=== PATIENT | male | born 1995 | race Caucasian/White ===

== ENCOUNTER 2016-12-19 19:21 | Emergency (ER) | payer MEDICAID ==
[2016-12-19 19:44] VITALS: RESP 18
--- NOTE | 2016-12-19 19:46 | EDPHY ---
H & P Time Seen by Provider: 12/19/16 19:36 HPI/ROS: CHIEF COMPLAINT: LSD ingestion HISTORY OF PRESENT ILLNESS: The patient presents to the emergency department after he reportedly ingested LSD. The patient is homeless and currently staying at a intermediate. The patient reports a history of seizure disorder and is supposed to be on Keppra but he has been off this medication for some time. The patient denies recent trauma, fall, fever or infectious symptoms. The patient denies IV drug use. The patient complains of feeling confused and having diffuse myalgias. REVIEW OF SYSTEMS: A comprehensive 10 point review of systems is otherwise negative aside from elements mentioned in the history of present illness. Source: Patient Exam Limitations: Intoxication - Medical/Surgical History Hx Asthma: Yes Hx Chronic Respiratory Disease: No Hx Diabetes: No Hx Cardiac Disease: No Hx Renal Disease: No Hx Cirrhosis: No Hx Alcoholism: No Hx HIV/AIDS: No Hx Splenectomy or Spleen Trauma: No Other PMH: HERB'S PALSY, CEREBRAL PALSY, SZ, POSS ASTHMA - Social History Smoking Status: Current every day smoker - Physical Exam Exam: General Appearance: Alert, no distress Eyes: Pupils equal and round no pallor or injection ENT, Mouth: Mucous membranes moist Respiratory: There are no retractions, lungs are clear to auscultation Cardiovascular: Regular rate and rhythm Gastrointestinal: Abdomen is soft and nontender, no masses, bowel sounds normal Neurological: A&O, normal motor function, normal sensory exam, normal cranial nerves Skin: Warm and dry, no rashes Musculoskeletal: Neck is supple nontender Extremities: symmetrical, full range of motion Psychiatric: Alert and oriented x3, mentation consistent with known LSD ingestion Constitutional: Initial Vital Signs Temperature (C) 36.6 C 12/19/16 19:38 Heart Rate 85 12/19/16 19:38 Respiratory Rate 18 12/19/16 19:38 Blood Pressure 125/74 H 12/19/16 19:38 O2 Sat (%) 95 12/19/16 19:38 O2 Delivery Mode Room Air Allergies/Adverse Reactions: No Known Allergies Allergy (Verified 01/24/16 02:54) Home Medications: Medication Instructions Recorded levETIRAcetam [Keppra] 500 mg PO BID #60 tab 01/22/16 levETIRAcetam [Keppra] 500 mg PO BID #14 tab 01/24/16 levETIRAcetam [Keppra] 500 mg PO BID #20 tab 01/26/16 Ondansetron Odt [Zofran Odt] 4 mg PO Q6-8PRN PRN #8 tab 02/04/16 levETIRAcetam [Keppra] 500 mg PO BID #30 tab 02/24/16 Medical Decision Making ED Course/Re-evaluation: The patient presents to the emergency department after an LSD ingestion. He was observed in the ED without evidence of significant vital sign abnormality. The patient's laboratory studies are within normal limits. The patient has no evidence of rhabdomyolysis. The patient was observed for 2 hours. He is now ambulatory without acute complaints. He denies suicidal ideation, homicidal ideation or acute pain. The patient will be discharged home with instructions to return to the emergency department for the development of any fever, worsening symptoms or other concerns. Differential Diagnosis: Differential diagnosis considered includes drug ingestion, rhabdomyolysis, dehydration, renal failure, metabolic derangement - Data Points Laboratory Results: Laboratory Results 12/19/16 19:55 12/19/16 19:55 12/19/16 12/19/16 19:55 19:55 WBC 13.77 10^3/uL H 10^3/uL (3.80-9.50) RBC 5.11 10^6/uL 10^6/uL (4.40-6.38) Hgb 15.2 g/dL g/dL (13.7-17.5) Hct 43.1 % % (40.0-51.0) MCV 84.3 fL fL (81.5-99.8) MCH 29.7 pg pg (27.9-34.1) MCHC 35.3 g/dL g/dL (32.4-36.7) RDW 12.4 % % (11.5-15.2) Plt Count 290 10^3/uL 10^3/uL (150-400) MPV 9.6 fL fL (8.7-11.7) Neut % (Auto) 78.5 % H % (39.3-74.2) Lymph % (Auto) 14.9 % L % (15.0-45.0) [place] % (Auto) 4.5 % % (4.5-13.0) Eos % (Auto) 1.2 % % (0.6-7.6) Baso % (Auto) 0.2 % L % (0.3-1.7) Nucleat RBC Rel Count 0.0 % % (0.0-0.2) Absolute Neuts (auto) 10.81 10^3/uL H 10^3/uL (1.70-6.50) Absolute Lymphs (auto) 2.05 10^3/uL 10^3/uL (1.00-3.00) Absolute Monos (auto) 0.62 10^3/uL 10^3/uL (0.30-0.80) Absolute Eos (auto) 0.17 10^3/uL 10^3/uL (0.03-0.40) Absolute Basos (auto) 0.03 10^3/uL 10^3/uL (0.02-0.10) Absolute Nucleated RBC 0.00 10^3/uL 10^3/uL (0-0.01) Immature Gran % 0.7 % % (0.0-1.1) Immature Gran # 0.09 10^3/uL 10^3/uL (0.00-0.10) Sodium 142 mEq/L mEq/L (134-144) Potassium 3.8 mEq/L mEq/L (3.5-5.2) Chloride 105 mEq/L mEq/L (97-110) Carbon Dioxide 25 mEq/l mEq/l (22-31) Anion Gap 12 mEq/L mEq/L (8-16) BUN 17 mg/dL mg/dL (7-23) Creatinine 0.8 mg/dL mg/dL (0.7-1.3) Estimated GFR > 60 Glucose 112 mg/dL H mg/dL (70-100) Calcium 9.8 mg/dL mg/dL (8.5-10.4) Creatine Kinase 150 IU/L IU/L (0-224) Ethyl Alcohol < 10 mg/dL mg/dL (0-10) Departure - Departure Disposition: Home, Routine, Self-Care Clinical Impression: Polysubstance abuse, Seizure disorder Condition: Good Instructions: Polysubstance Abuse (ED) Additional Instructions: 1. [facility] to [facility] care. 2. Please avoid the use of recreational drugs such as LSD as it puts you at risk for significant medical problems or possibly . 3. Return to the ED for any fever, severe pain, worsening symptoms or other concerns. Referrals: [facility],. [Clinic] - As per Instructions
[2016-12-19 20:06] LABS: % IMMATURE GRANULYOCYTES 0.7 % (0.0-1.1); ABSOLUTE IMMATURE GRANULOCYTES 0.09 10^3/uL (0.00-0.10); ADD DIFF? NO; ADD MORPH? NO; ADD SCAN? NO; ATYPICAL LYMPHOCYTE FLAG 10 (0-99); FRAGMENT RBC FLAG 0 (0-99); HEMATOCRIT 43.1 % (40.0-51.0); HEMOGLOBIN 15.2 g/dL (13.7-17.5); LEFT SHIFT FLG 0 (0-99); LIPEMIA HEMOLYSIS FLAG 90 (0-99); MEAN CELL HEMOGLOBIN 29.7 pg (27.9-34.1); MEAN CELL HEMOGLOBIN CONCENTR. 35.3 g/dL (32.4-36.7); MEAN CELL VOLUME 84.3 fL (81.5-99.8); MEAN PLATELET VOLUME 9.6 fL (8.7-11.7); PLATELET CLUMPS FLAG 10 (0-99); PLATELET COUNT 290 10^3/uL (150-400); RED BLOOD CELL COUNT 5.11 10^6/uL (4.40-6.38); RED CELL DISTRIBUTION WIDTH 12.4 % (11.5-15.2)
[2016-12-19 20:39] LABS: ANION GAP 12 mEq/L (8-16); CALCIUM 9.8 mg/dL (8.5-10.4); CARBON DIOXIDE 25 mEq/l (22-31); CHLORIDE 105 mEq/L (97-110); CREATININE 0.8 mg/dL (0.7-1.3); ETHANOL SERUM < 10 mg/dL (0-10); GLOMERULAR FILTRATION RATE > 60; GLUCOSE 112 mg/dL (70-100); POTASSIUM 3.8 mEq/L (3.5-5.2); SODIUM 142 mEq/L (134-144)
[2016-12-19 20:41] VITALS: O2SAT 94
[2016-12-19 21:37] VITALS: BP 108/86; PULSE 90; TEMP 98.2
== END 2016-12-19 21:38 | disposition home or self-care (01) ==
LOC: EDUNIT#
DX: G40.909 Epilepsy, unspecified, not intractable, without status epilepticus (principal); F19.10 Other psychoactive substance abuse, uncomplicated; J45.909 Unspecified asthma, uncomplicated; F17.200 Nicotine dependence, unspecified, uncomplicated
CPT/HCPCS: G0480

== ENCOUNTER 2017-03-21 21:04 | Emergency (ER) | payer MEDICAID ==
--- NOTE | 2017-03-21 22:43 | EDPHY ---
H & P Smoking Status: Current every day smoker Time Seen by Provider: 03/21/17 22:03 HPI/ROS: CHIEF COMPLAINT: Right knee pain HISTORY OF PRESENT ILLNESS: 21-year-old male presents emergency department complaining of right knee pain. Patient reports he was skateboarding today when he fell onto his right knee. He denies any twisting injury. He denies numbness or tingling in his leg, no head strike, no neck pain, no other complaints. ( Nita Wylie) Physical Exam: GEN: Awake, alert, oriented, no acute distress RESP: nl resp effort MSK: Right knee with full active flexion and extension, diffuse tenderness to palpation throughout, unable to perform the exam due to patient not tolerating exam. 2+ pedal pulses SKIN: No break in skin (Nita Wylie) Constitutional: Initial Vital Signs Temperature (C) 36.8 C 03/21/17 21:17 Heart Rate 94 03/21/17 21:17 Respiratory Rate 18 03/21/17 21:17 Blood Pressure 117/74 03/21/17 21:17 O2 Sat (%) 94 03/21/17 21:17 O2 Delivery Mode Room Air Allergies/Adverse Reactions: No Known Allergies Allergy (Verified 01/24/16 02:54) Home Medications: Medication Instructions Recorded levETIRAcetam [Keppra] 500 mg PO BID #30 tab 02/24/16 MDM/Departure - [facility] Imaging: I viewed and interpreted images myself - [facility] ED Course/Re-evaluation: The patient was evaluated and managed by the Physician Cover Stitch Machine Operator/ Nurse Practitioner. My co-signature indicates that I have reviewed this chart and I agree with the findings and plan of care as documented. I am the secondary supervising physician. (aNz Horn) - Depart Disposition: Home, Routine, Self-Care Clinical Impression: Right knee injury Qualifiers: Encounter type: initial encounter Qualified Code(s): S89.91XA - Unspecified injury of right lower leg, initial encounter Condition: Good Instructions: Knee Pain (ED) Additional Instructions: Rest, ice, elevate, take 600 mg of ibuprofen every 8 hours with food for 3-5 days. Follow up with orthopedist for pain that is not improving in the next 3- 5 days. Return to the emergency department for worsening symptoms, new symptoms or concerns. Referrals: Kadeem Dietz MD [Medical Doctor] - As per Instructions (Orthopedist on-call )
[2017-03-21 22:56] VITALS: BP 122/82; PULSE 76; RESP 14; TEMP 97.7; O2SAT 91
== END 2017-03-21 22:55 | disposition home or self-care (01) ==
DX: S89.91XA Unspecified injury of right lower leg, initial encounter (principal); F17.200 Nicotine dependence, unspecified, uncomplicated; V00.131A Fall from skateboard, initial encounter; Y93.51 Activity, roller skating (inline) and skateboarding
CPT/HCPCS: L1830

== ENCOUNTER 2017-04-02 18:55 | Observation (INO) | payer MEDICAID ==
[2017-04-02] MEDS ORDERED: IOPAMIDOL (ISOVUE-300) 100 ML BTL ONE (19:06)
[2017-04-02 19:07] LABS: % IMMATURE GRANULYOCYTES 0.3 % (0.0-1.1); ABSOLUTE IMMATURE GRANULOCYTES 0.02 10^3/uL (0.00-0.10); ADD DIFF? NO; ADD MORPH? NO; ADD SCAN? NO; ATYPICAL LYMPHOCYTE FLAG 10 (0-99); FRAGMENT RBC FLAG 0 (0-99); HEMATOCRIT 40.7 % (40.0-51.0); LEFT SHIFT FLG 0 (0-99); LIPEMIA HEMOLYSIS FLAG 90 (0-99); MEAN CELL HEMOGLOBIN 29.9 pg (27.9-34.1); MEAN CELL HEMOGLOBIN CONCENTR. 34.4 g/dL (32.4-36.7); MEAN PLATELET VOLUME 9.6 fL (8.7-11.7); PLATELET CLUMPS FLAG 0 (0-99); PLATELET COUNT 256 10^3/uL (150-400); RED BLOOD CELL COUNT 4.68 10^6/uL (4.40-6.38); RED CELL DISTRIBUTION WIDTH 12.5 % (11.5-15.2)
[2017-04-02 19:20] LABS: ANION GAP 13 mEq/L (8-16); CARBON DIOXIDE 23 mEq/l (22-31); CHLORIDE 105 mEq/L (97-110); GLOMERULAR FILTRATION RATE > 60; GLUCOSE 108 mg/dL (70-100); POTASSIUM 4.1 mEq/L (3.5-5.2); SODIUM 141 mEq/L (134-144)
--- NOTE | 2017-04-02 19:38 | EDPHY ---
H & P Stated Complaint: longboard accident at unknown speed, no recall and no helmet Time Seen by Provider: 04/02/17 19:34 HPI/ROS: CHIEF COMPLAINT: Skateboarding accident HISTORY OF PRESENT ILLNESS: The patient presents to the ED by paramedics after a fall from his skateboard. The patient is amnestic to the specifics of the fall. He does remember riding at a high rate of speed. The patient is uncertain whether he struck his head. He has no head trauma and he has no complaints of headache. The patient does complain of back pain, mild anterior chest pain and bilateral knee pain. The patient reports a history of seizure disorder. The patient states he does take Keppra. The patient denies any focal numbness or weakness. He denies recent seizure or other acute complaints. REVIEW OF SYSTEMS: A comprehensive 10 point review of systems is otherwise negative aside from elements mentioned in the history of present illness. Source: Patient Exam Limitations: No limitations - Personal History Current Tetanus/Diphtheria Vaccine: Yes Tetanus Vaccine Date: 2015 - Medical/Surgical History Hx Asthma: Yes Hx Chronic Respiratory Disease: No Hx Diabetes: Yes Hx Cardiac Disease: No Hx Renal Disease: No Hx Cirrhosis: No Hx Alcoholism: No Hx HIV/AIDS: No Hx Splenectomy or Spleen Trauma: No Other PMH: HERB'S PALSY, CEREBRAL PALSY, SZ, POSS ASTHMA - Social History Smoking Status: Heavy smoker - Physical Exam Exam: General Appearance: Alert, no distress Head: Atraumatic, specifically no hematoma, abrasion or contusion Eyes: Pupils equal, round, reactive ENT, Mouth: No hemotympanum, no oral trauma Neck: Minimal tenderness to palpation in the bilateral paracervical muscles Respiratory: No chest wall tender, subcutaneous air, lungs clear bilaterally Cardiovascular: Regular rate and rhythm Abdomen: Abdomen is soft and nontender, pelvis stable Skin: Abrasions to bilateral knees, no laceration Back: No midline T/L/S pain Extremities: Tenderness to palpation bilateral knees Neurological: A&Ox3, normal motor function, normal sensory exam Constitutional: Initial Vital Signs Temperature (C) 36.7 C 04/02/17 19:11 Heart Rate 78 04/02/17 19:11 Respiratory Rate 22 H 04/02/17 19:11 Blood Pressure 112/66 04/02/17 19:11 O2 Sat (%) 96 04/02/17 19:11 O2 Delivery Mode Room Air Allergies/Adverse Reactions: No Known Allergies Allergy (Verified 01/24/16 02:54) Home Medications: Medication Instructions Recorded levETIRAcetam [Keppra] 500 mg PO BID #30 tab 02/24/16 Medical Decision Making - Diagnostics Imaging Results: Imaging Impressions Abdomen CT 04/02/17 18:59 Impression: Small tear of the innominate vein associated with a retromanubrial hematoma. There is a tiny amount of active contrast extravasation. 2. CT Scan of the Abdomen and Pelvis (With Contrast, multiphase, extended study ) , 19:18 Clinical Indications: Trauma. Skate boarding injury. Technique: 90 mL of Isovue 300 were given intravenously by machine power injection. Multidetector helical CT imaging was performed from the diaphragm to the symphysis pubis first during the arterial phase and then during a delayed phase. Dose reduction techniques were utilized. Findings: Abdomen: The liver and spleen are normal without evidence of laceration or subcapsular hematoma formation. The gallbladder and pancreas look normal. The kidneys do not show evidence for laceration, cortical contusion, or obstruction. There is no free air or free fluid. Pelvis: The urinary bladder is unremarkable. No free fluid in the pelvis. Bowel loops are normal.The patient is diffusely constipated. Bone window evaluation: No fracture is identified. The lumbar spine and sacrum are normally aligned. No pelvic or hip fracture is identified. Impression: No acute posttraumatic abnormality in the abdomen or pelvis. Results called and discussed with Tristan Abrams at 04/02/2017 19:58 Final results are concordant with the preliminary interpretation. General information for patients regarding this examination can be found at [email or web address]. If you have questions or comments about this report, please contact me at (hospital) or [phone] (cell). Cervical Spine CT 04/02/17 18:59 Impression: No acute posttraumatic abnormality identified. 2. CT Cervical Spine Without Contrast, 19:15 History: Trauma. Skateboarding injury today. Pain. Technique: Multislice helical CT through the cervical spine without contrast from the skull base to T1. Soft tissue and bone evaluation is performed. Sagittal and coronal reconstructions are obtained and reviewed. Dose reduction techniques were utilized. Findings: Cervical alignment is anatomic. No fracture or dislocation is identified. The relationship between skull base and C1 is normal. The C1-C2 articulation is normally aligned. There is congenital spina bifida occulta of the posterior arch of C1. The odontoid process is intact. Disk spaces maintain their normal height . Facet joints are normally aligned. The cervical thoracic junction is normally aligned. Soft tissue window evaluation does not show evidence of epidural or prevertebral hematoma. Impression: No acute posttraumatic abnormality identified. Results called and discussed with Tristan Abrams, at 04/02/2017 19:45 Final results are concordant with the initial interpretation. General information for patients regarding this examination can be found at [email or web address]. If you have questions or comments about this report, please contact me at (hospital) or [phone] (cell). Head CT 04/02/17 18:59 Impression: No acute posttraumatic abnormality identified. 2. CT Cervical Spine Without Contrast, 19:15 History: Trauma. Skateboarding injury today. Pain. Technique: Multislice helical CT through the cervical spine without contrast from the skull base to T1. Soft tissue and bone evaluation is performed. Sagittal and coronal reconstructions are obtained and reviewed. Dose reduction techniques were utilized. Findings: Cervical alignment is anatomic. No fracture or dislocation is identified. The relationship between skull base and C1 is normal. The C1-C2 articulation is normally aligned. There is congenital spina bifida occulta of the posterior arch of C1. The odontoid process is intact. Disk spaces maintain their normal height . Facet joints are normally aligned. The cervical thoracic junction is normally aligned. Soft tissue window evaluation does not show evidence of epidural or prevertebral hematoma. Impression: No acute posttraumatic abnormality identified. Results called and discussed with Tristan Abrams, at 04/02/2017 19:45 Final results are concordant with the initial interpretation. General information for patients regarding this examination can be found at [employer]. If you have questions or comments about this report, please contact me at (hospital) or [phone] (cell). Chest CT 04/02/17 19:03 Impression: Small tear of the innominate vein associated with a retromanubrial hematoma. There is a tiny amount of active contrast extravasation. 2. CT Scan of the Abdomen and Pelvis (With Contrast, multiphase, extended study ) , 19:18 Clinical Indications: Trauma. Skate boarding injury. Technique: 90 mL of Isovue 300 were given intravenously by machine power injection. Multidetector helical CT imaging was performed from the diaphragm to the symphysis pubis first during the arterial phase and then during a delayed phase. Dose reduction techniques were utilized. Findings: Abdomen: The liver and spleen are normal without evidence of laceration or subcapsular hematoma formation. The gallbladder and pancreas look normal. The kidneys do not show evidence for laceration, cortical contusion, or obstruction. There is no free air or free fluid. Pelvis: The urinary bladder is unremarkable. No free fluid in the pelvis. Bowel loops are normal.The patient is diffusely constipated. Bone window evaluation: No fracture is identified. The lumbar spine and sacrum are normally aligned. No pelvic or hip fracture is identified. Impression: No acute posttraumatic abnormality in the abdomen or pelvis. Results called and discussed with Tristan Abrams, at 04/02/2017 19:58 Final results are concordant with the preliminary interpretation. General information for patients regarding this examination can be found at [email or web address]. If you have questions or comments about this report, please contact me at (hospital) or [phone] (cell). Knee X-Ray 04/02/17 19:38 Impression: Normal knees. Knee X-Ray 04/02/17 19:58 Impression: Normal knees. ED Course/Re-evaluation: The patient presents to the ED is limited trauma activation. He fell from his skateboard. The patient was somewhat amnestic to the events of the fall. He denied any headache upon arrival however did complain of some mild posterior neck pain. The patient also complains of bilateral knee pain and pain in his low back, mid back and slightly in his anterior chest wall. The patient was noted to be hemodynamically stable upon arrival. He arrived in a cervical spine collar. The patient had an IV established. The patient was taken for CT scan of his head, neck, chest, abdomen and pelvis. CT scan of the chest does demonstrate a small retrosternal hematoma likely secondary to an innominate vein bleed. The patient's initial hematocrit is stable. Consultation was made with Dr. Boom Flowers from trauma surgery who evaluated the patient at 8:20 p.m.. Patient has had his cervical spine collar removed and has been cleared radiographically and clinically by myself. Patient has a GCS of 15. The patient is quite upset about having to stay in the hospital. The patient is agreeable to stay in the hospital. The patient was seen in consultation by Trauma surgery. The patient will be admitted to observation this evening. Differential Diagnosis: Differential diagnosis considered includes intracranial hemorrhage, skull fracture, cervical spine fracture, rib fracture, pneumothorax, intra-abdominal injury, knee fracture - Data Points Laboratory Results: Laboratory Results 04/02/17 19:00 04/02/17 19:00 04/02/17 04/02/17 19:00 19:00 WBC 6.23 10^3/uL 10^3/uL (3.80-9.50) RBC 4.68 10^6/uL 10^6/uL (4.40-6.38) Hgb 14.0 g/dL g/dL (13.7-17.5) Hct 40.7 % % (40.0-51.0) MCV 87.0 fL fL (81.5-99.8) MCH 29.9 pg pg (27.9-34.1) MCHC 34.4 g/dL g/dL (32.4-36.7) RDW 12.5 % % (11.5-15.2) Plt Count 256 10^3/uL 10^3/uL (150-400) MPV 9.6 fL fL (8.7-11.7) Neut % (Auto) 63.8 % % (39.3-74.2) Lymph % (Auto) 29.5 % % (15.0-45.0) [place] % (Auto) 4.8 % % (4.5-13.0) Eos % (Auto) 1.1 % % (0.6-7.6) Baso % (Auto) 0.5 % % (0.3-1.7) Nucleat RBC Rel Count 0.0 % % (0.0-0.2) Absolute Neuts (auto) 3.97 10^3/uL 10^3/uL (1.70-6.50) Absolute Lymphs (auto) 1.84 10^3/uL 10^3/uL (1.00-3.00) Absolute Monos (auto) 0.30 10^3/uL 10^3/uL (0.30-0.80) Absolute Eos (auto) 0.07 10^3/uL 10^3/uL (0.03-0.40) Absolute Basos (auto) 0.03 10^3/uL 10^3/uL (0.02-0.10) Absolute Nucleated RBC 0.00 10^3/uL 10^3/uL (0-0.01) Immature Gran % 0.3 % % (0.0-1.1) Immature Gran # 0.02 10^3/uL 10^3/uL (0.00-0.10) Sodium 141 mEq/L mEq/L (134-144) Potassium 4.1 mEq/L mEq/L (3.5-5.2) Chloride 105 mEq/L mEq/L (97-110) Carbon Dioxide 23 mEq/l mEq/l (22-31) Anion Gap 13 mEq/L mEq/L (8-16) BUN 24 mg/dL H mg/dL (7-23) Creatinine 1.0 mg/dL mg/dL (0.7-1.3) Estimated GFR > 60 Glucose 108 mg/dL H mg/dL (70-100) Calcium 10.0 mg/dL mg/dL (8.5-10.4) Medications Given: Discontinued Medications Ketorolac Tromethamine (Toradol) 15 mg IVP EDNOW ONE Stop: 04/02/17 19:47 Last Admin: 04/02/17 19:48 Dose: 15 mg Departure - Departure Disposition: [facility] Inpatient Acute Clinical Impression: Traumatic mediastinal hematoma, Seizure disorder Condition: Good Referrals: Patient,NotPresent [Primary Care Provider] - As per Instructions
[2017-04-02] MEDS ORDERED: KETOROLAC 15 MG/1 ML SDV ONE (19:42)
[2017-04-02] MEDS ORDERED: KETOROLAC 15 MG/1 ML SDV IVP ONE (19:46)
[2017-04-02] MEDS ORDERED: HYDROCODONE/APAP 5/325 TAB PO PRN (20:27)
[2017-04-02] MEDS ORDERED: ONDANSETRON DISINTEGRATING 4 MG TAB PO PRN (20:27)
[2017-04-02] MEDS ORDERED: levETIRAcetam 500 MG in NS 100 ML IV SCH (21:00)
--- NOTE | 2017-04-02 21:28 | GHP ---
[f rep st] HISTORY AND PHYSICAL DATE OF ADMISSION: 04/02/2017 CHIEF COMPLAINT: Fall off skateboard, loss of consciousness. SUMMARY OF PRESENT ILLNESS: A 21-year-old male who apparently fell while skate boarding. Does not recall the events of the fall. Does not really recall the arrival of the ambulance, although he is equivocal about as to whether he actually lost consciousness. He has numerous scrapes and abrasions . Complains of right knee pains, although he states his knee has been sore since age 17. ALLERGIES: None. CURRENT MEDICATIONS: Keppra 500 twice daily, ibuprofen for knee pain. REVIEW OF SYSTEMS: Seizure disorder, type 2 diabetes, asthma. PAST SURGICAL HISTORY: None. SOCIAL HISTORY: Smokes 1 pack of cigarettes a day. I discussed smoking cessation with the patient. He is disinclined to consider it. Alcohol use, none. 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 PHYSICAL EXAMINATION: HEENT: PERRL, EOMI, sclerae nonicteric. NECK: Nontender. Supple. No supr aclavicular or axillary crepitus. HEART: Normal S1, S2 without murmur. LUNGS: Clear. ABDOMEN: Soft, benign. PELVIS: Stable to compression. LOWER EXTREMITIES: Unremarkable. Right knee somewha t tender with range of motion, but an x-ray is unremarkable. DIAGNOSTIC STUDIES: The patient underwent CT scan of the head, neck, chest, abdomen, and pelvis. T here is an upper retrosternal hematoma which is in the area of apparent contrast leak from the innom inate vein. There is no hemo-, no pneumothorax. The remainder of the chest and abdomen CT are norm al. ASSESS: A 21-year-old male with the very unusual finding of tear in the innominate vein with some e xtravasation and small hematoma in the retrosternal upper mediastinum. This is an unusual injury an d I would recommend he be admitted for observation. Being venous structure and under low pressure, it is unlikely he will develop life-threatening hemorrhage, but we will monitor him, check a chest x -ray in the morning, vital signs during the night. The patient is moderately agitated, stating he does not want to be in the hospital and wants to leav e, but at the moment agrees to be observed overnight. /[id number]/MODL
[2017-04-02] MEDS: levETIRAcetam 500 MG in NS 100 ML IV SCH (22:39)
[2017-04-02] MEDS: IBUPROFEN 600 MG TAB PO SCH (22:41)
[2017-04-02] MEDS: BACITRACIN ZINC 14.2 GM OINTTUBE TP SCH (22:42)
[2017-04-03] MEDS: IBUPROFEN 600 MG TAB PO SCH (06:20)
[2017-04-03 07:21] VITALS: BP 100/58; PULSE 59; RESP 12; TEMP 97.6; O2SAT 94
--- NOTE | 2017-04-03 08:49 | TRAUMAPN ---
Assessment/Plan: no complaints. patient uncooperative with questions. CXR unremarkable. AVSS. heart reg. lungs clear. chest nontender. Innom vein lac - no ongoing extrav. DC today. no further workup or treatment needed. Objective: Vital Signs Temp Pulse Resp BP Pulse Ox 36.4 C 59 L 12 100/58 L 94 04/03/17 07:18 04/03/17 07:18 04/03/17 07:18 04/03/17 07:18 04/03/17 07:18 04/02/17 04/03/17 04/04/17 05:59 05:59 05:59 Intake Total 885 Balance 885
[2017-04-03] MEDS: levETIRAcetam 500 MG in NS 100 ML IV SCH (08:58)
[2017-04-03] MEDS: BACITRACIN ZINC 14.2 GM OINTTUBE TP SCH (08:58)
== END 2017-04-03 11:55 | disposition home or self-care (01) ==
LOC: EDUNIT# → F3N 21:30
PROVIDERS: ADMIT Surgery; ATTEND Surgery
DX: S25.3 Injury of innominate or subclavian vein (principal); S20.219A Contusion of unspecified front wall of thorax, initial encounter; G40.909 Epilepsy, unspecified, not intractable, without status epilepticus; M25.561 Pain in right knee; M25.562 Pain in left knee; M54.2 Cervicalgia; V00.131A Fall from skateboard, initial encounter; Y93.51 Activity, roller skating (inline) and skateboarding; G80.9 Cerebral palsy, unspecified; Q76.0 Spina bifida occulta; R40.2413 Glasgow coma scale score 13-15, at hospital admission; E11.9 Type 2 diabetes mellitus without complications; F17.200 Nicotine dependence, unspecified, uncomplicated; J45.909 Unspecified asthma, uncomplicated; Z59.0 Homelessness
CPT/HCPCS: 70450; 71020; 71260; 72125; 73564; 74177; 92523; 97165; G0378; 96374; J1885; J1953; Q9967

== ENCOUNTER 2017-05-21 14:28 | Emergency (ER) | payer MEDICAID ==
[2017-05-21 14:36] VITALS: BP 125/76; PULSE 90; RESP 18; TEMP 98.2; O2SAT 95
--- NOTE | 2017-05-21 15:16 | EDPHY ---
H & P Stated Complaint: Cough and L Wrist Pain Source: Patient Exam Limitations: No limitations - Personal History Current Tetanus Diphtheria and Acellular Pertussis (TDAP): Yes Tetanus Vaccine Date: 2015 - Medical/Surgical History Hx Asthma: Yes Hx Chronic Respiratory Disease: No Hx Diabetes: Yes Hx Cardiac Disease: No Hx Renal Disease: No Hx Cirrhosis: No Hx Alcoholism: No Hx HIV/AIDS: No Hx Splenectomy or Spleen Trauma: No Other PMH: HERB'S PALSY, CEREBRAL PALSY, SZ, POSS ASTHMA, DM type 2 diet controlled, depression, muscle spasms, left shoulder at - Social History Smoking Status: Heavy smoker HPI/ROS: CHIEF COMPLAINT: Cough, left wrist pain HISTORY OF PRESENT ILLNESS: Patient presents with 2 complaints. The 1st is a cough. Cough has been present for 3-4 days. [id number]. Steadily worsening. Constant duration. No chest pain but does have a painful cough. Some runny nose and subjective fever. No shortness of breath. Difficulty taking a deep breath in. He has attempted albuterol inhaler with no improvement. No abdominal pain. Second complaint is left wrist pain. He heard at work several days ago. He does not know exactly what happened, but says that he is painful the entire wrist. No numbness or tingling. No pain distally or proximally. No difficulty holding objects. Worse with palpation and movement. Improved at rest. No other associated complaints or modifying factors. REVIEW OF SYSTEMS: Ten systems reviewed and are negative unless otherwise noted in the HPI PCP: None SPECIALISTS: None PAST MEDICAL HISTORY: Denies any medical diagnoses SOCIAL HISTORY: Smokes tobacco. Denies alcohol. Denies illicit substance use. FAMILY HISTORY: Noncontributory EXAMINATION General Appearance: Alert, no distress Head: normocephalic, atraumatic Eyes: Pupils equal and round, no conjunctival pallor or injection ENT, Mouth: Mucous membranes moist. Uvula midline. Airway is widely patent. No erythema or edema. Neck: Normal inspection, supple, non-tender Respiratory: Scattered rhonchi. No wheezing. No crackles. No diminishment. No consolidation. No retractions or distress Cardiovascular: Regular rate and rhythm. No murmur. Gastrointestinal: Abdomen is soft and nontender Back: non-tender, no bony abnormalities Neurological: A&O, nonfocal, normal gait. Strength is symmetric in all 4 limbs. No wrist drop. Good strength of the interossei. Skin: Warm and dry, no rash. No petechiae or purpura. Extremities: Tenderness to palpation of the left wrist circumferentially. There is no point tenderness of the snuffbox. No tenderness of the metacarpals. Range of motion is intact and symmetric to the right upper extremity. No crepitus or deformity. Psychiatric: Mood and affect normal DIFFERENTIAL DIAGNOSES: Including but not limited to wrist sprain, wrist fracture, pneumonia, bronchitis , pneumonitis, influenza MDM: 3:15 p.m. Acute bronchitis with normal vital signs. No evidence of pneumonia by history, examination or x-ray. Acute left wrist sprain with no evidence of fracture on x -ray. Provide a left wrist thumb spica splint, medications for the bronchitis. This includes Tessalon Perles, 1 dose of Decadron, Zithromax as he is a smoker. Follow up with [facility]. Follow up with Orthopedics for the left wrist pain. ED precautions discussed. He is comfortable with this plan and discharged home stable condition (Azam Dewey) Constitutional: Initial Vital Signs Temperature (C) 36.8 C 05/21/17 14:34 Heart Rate 90 05/21/17 14:34 Respiratory Rate 18 05/21/17 14:34 Blood Pressure 125/76 H 05/21/17 14:34 O2 Sat (%) 95 05/21/17 14:34 O2 Delivery Mode Room Air Allergies/Adverse Reactions: No Known Allergies Allergy (Verified 01/24/16 02:54) Home Medications: Medication Instructions Recorded Ibuprofen [Motrin (*)] 800 mg PO BID 04/02/17 levETIRAcetam [Keppra 500 mg (*)] 500 mg PO BID 04/02/17 Ibuprofen [Motrin (*)] 600 mg PO Q8HRS #0 tab 04/03/17 Albuterol [Proventil Inhaler HFA 1 - 2 puffs IH Q4H PRN #1 mdi 05/21/17 (*)] Azithromycin [Zithromax] 250 mg PO DAILY #6 tab 05/21/17 Benzonatate [Tessalon Pearles (RX)] 100 mg PO Q8 PRN #15 cap 05/21/17 Dexamethasone [Decadron 4 MG (*)] 8 mg PO DAILY #2 tab 05/21/17 Medical Decision Making - Diagnostics Imaging Results: Imaging Impressions Chest X-Ray 05/21/17 14:37 Impression: Mild increased prominence of perihilar interstitial markings and peribronchial cuffing. Findings are nonspecific but can be seen with bronchitis , reactive airway disease, or viral process. Wrist X-Ray 05/21/17 14:37 Impression: Normal left wrist series. ED Course/Re-evaluation: The patient was evaluated and managed by the physician clinical data assistant. I have reviewed this chart and I agree with the findings and plan of care as documented , as indicated by my signature. I am the secondary supervising physician. ( Nani Hand) Departure - Departure Disposition: Home, Routine, Self-Care Clinical Impression: Acute bronchitis Qualifiers: Bronchitis organism: unspecified organism Qualified Code(s): J20.9 - Acute bronchitis, unspecified Sprain of wrist, left Qualifiers: Encounter type: initial encounter Qualified Code(s): S63.502A - Unspecified sprain of left wrist, initial encounter Condition: Good Instructions: How to Stop Smoking (ED), Acute Bronchitis (ED), Wrist Sprain (ED ) Additional Instructions: 1. Medications as prescribed to completion 2. Follow up with primary care physician in 2 days 3. ED precautions for worsening symptoms, fever, chest pain Referrals: NONE *PRIMARY CARE P,. [Primary Care Provider] - As per Instructions [facility],. [Clinic] - As per Instructions Иван Salcido MD [Medical Doctor] - As per Instructions Prescriptions: Albuterol [Proventil Inhaler HFA (*)] 1 - 2 puffs IH Q4H PRN #1 mdi PRN Reason: Short Of Breath/Dyspnea Azithromycin [Zithromax] 250 mg PO DAILY #6 tab Benzonatate [Tessalon Pearles (RX)] 100 mg PO Q8 PRN #15 cap PRN Reason: Cough, Mild Dexamethasone [Decadron 4 MG (*)] 8 mg PO DAILY #2 tab
== END 2017-05-21 15:15 | disposition home or self-care (01) ==
DX: S63.502A Unspecified sprain of left wrist, initial encounter (principal); J20.9 Acute bronchitis, unspecified; F17.200 Nicotine dependence, unspecified, uncomplicated; E11.9 Type 2 diabetes mellitus without complications; J45.909 Unspecified asthma, uncomplicated; X58.XXXA Exposure to other specified factors, initial encounter
CPT/HCPCS: L3807